=== PATIENT | female | born 1955 | race Caucasian/White ===

== ENCOUNTER 2020-06-24 06:14 | Observation (INO) ==
--- NOTE | 2020-06-05 07:48 | ANES ---
Anesthesia Pre Procedure Eval HOME MEDICATIONS atorvastatin 10 mg tablet 10 mg PO DAILY tab 01/02/20 [Last Taken Unknown] ibuprofen 200 mg capsule 200 mg PO TID-QID PRN 01/02/20 [Last Taken Unknown] levothyroxine 150 mcg tablet 150 mcg PO DAILY tab 01/02/20 [Last Taken Unknown] losartan 50 mg tablet 50 mg PO DAILY tab 01/02/20 [Last Taken Unknown] magnesium glycinate 100 mg tablet 100 mg PO DAILY 01/02/20 [Last Taken Unknown] sertraline 100 mg tablet 100 mg PO DAILY 01/02/20 [Last Taken Unknown] cholecalciferol (vitamin D3) 25 mcg (1,000 unit) capsule 1,000 unit PO DAILY 04/19/20 [Last Taken Unknown] acetaminophen 325 mg tablet 325 mg PO Q6H PRN 05/21/20 [Last Taken Unknown] cyclobenzaprine 10 mg tablet 10 mg PO TID PRN 05/21/20 [Last Taken Unknown] Allergies/Adverse Reactions: Allergies Allergy/AdvReac Type Severity Reaction Status Date / Time lisinopril AdvReac Mild Cough Verified 05/21/20 09:19 - Planned Procedure Planned Procedure: Right Arthroplasty Total Knee Medication List Reviewed:: Yes Allergies Verified: Yes Medical History (Last Reviewed 05/21/20 @ 09:20 by Belkys Griffith RN) Depression High cholesterol Hypertension Hypothyroidism Torn meniscus Onset Date: ~05/13/14 Surgical History (Last Reviewed 05/21/20 @ 09:20 by Belkys Griffith RN) History of arthroscopy of both knees History of cholecystectomy History of hysterectomy History of tonsillectomy and adenoidectomy Family History (Last Reviewed 05/21/20 @ 09:20 by Belkys Griffith RN) Sister Cancer Ovarian age 66 Brother Cancer Prostate CA age 67 Brother Cancer Bladder age 80 Father TIA (transient ischemic attack) Mother No problems noted. - Family Anesthesia History Family History:: no untoward family reactions to anesthesia, no familial bleeding tendencies, no family history of clotting disorders, no family history of premature - Respiratory Smoking Status: Former smoker Discussed smoking cessation including day of surgery: No Sleep Apnea currently treated: No Sleep Apnea by current assessment: No Discussed Risks/Treatment of MONA: No - Cardiovascular Tolerate Activity: Good Heart Sounds: S1 & S2, Regular - Anesthesia Assessment and Plan ASA Class: PS, II Anesthesia Type Plan: Block - Right ultrasound guided adductor canal nerve block for postop analgesia, Spinal
[~2020-06-24 06:14] MED LIST: MORPHINE SULFATE 15 MG TABLET.SA PO PRN; ROPIVACAINE/CLONIDIN/KETOROLAC 50 ML SYRINGE IJ PRN; TRANEXAMIC ACID 1,000 MG in NORMAL SALINE 100 ML IV PRN; ceFAZolin SODIUM 1 GM VIAL IV PRN
[2020-06-24] MEDS ORDERED: ROPIVACAINE/CLONIDIN/KETOROLAC 50 ML SYRINGE IJ ONE (06:36)
[2020-06-24] MEDS ORDERED: ceFAZolin SODIUM 1 GM VIAL ONE (06:36)
[2020-06-24] MEDS: RINGER'S SOLUTION,LACTATED 1,000 ML IV PRN ×3 (06:48→09:40)
[2020-06-24] MEDS ORDERED: ISOPROPYL ALCOHOL 480 APPL BTL MC ONE (06:54)
[2020-06-24] MEDS ORDERED: BUPIVACAINE HCL/EPINEPHRINE 50 ML VIAL IJ ONE (07:00)
[2020-06-24] MEDS ORDERED: PROPOFOL VIAL IV ONE (07:00)
[2020-06-24] MEDS ORDERED: LIDOCAINE HCL 20 ML VIAL ONE (07:00)
[2020-06-24] MEDS ORDERED: BUPIVACAINE HCL/PF 10 ML VIAL ONE (07:00)
[2020-06-24] MEDS ORDERED: MIDAZOLAM HCL/PF 5 MG/ML VIAL ONE (07:00)
[2020-06-24] MEDS ORDERED: ONDANSETRON HCL/PF 2 MG/ML VIAL ONE (07:44)
[2020-06-24] MEDS ORDERED: DEXAMETHASONE SODIUM PHOSPHATE 10 MG/ML VIAL ONE (07:44)
[2020-06-24] MEDS ORDERED: diphenhydrAMINE HCL 50 MG/ML VIAL IV PRN (10:02)
[2020-06-24] MEDS ORDERED: ZOLPIDEM TARTRATE 5 MG TABLET PO PRN (10:02)
[2020-06-24] MEDS ORDERED: MAGNESIUM HYDROXIDE 30 ML UDC PO PRN (10:02)
[2020-06-24] MEDS ORDERED: MAG HYDROX/ALUMINUM HYD/SIMETH 30 ML UDC PO PRN (10:02)
[2020-06-24] MEDS ORDERED: DEXTROSE 5%-LACTATED RINGERS 1,000 ML IV PRN (10:02)
[2020-06-24] MEDS ORDERED: ONDANSETRON HCL/PF 2 MG/ML VIAL IV PRN (10:02)
[2020-06-24] MEDS ORDERED: MORPHINE SULFATE 2 MG/ML DISP.SYRIN IV PRN (10:02)
[2020-06-24] MEDS ORDERED: oxyCODONE HCL/ACETAMINOPHEN 1 TAB TABLET PO PRN (10:02)
--- NOTE | 2020-06-24 10:02 | OR ---
Operative Report - Dictated Report Narrative: Date: 06/24/2020 Preoperative diagnosis: Right knee degenerative joint disease. Postoperative diagnosis: Right knee degenerative joint disease. Procedure: Right total knee arthroplasty. Surgeon: Sean Rosen M.D. Customer Service Supervisor: Agus Maier PA-C (provided and essential set of skilled, educated hands that assisted with transfer, positioning, prepping, draping, manipulation, retraction, placement of jigs, injection, insertion of implants, irrigation, closure wounds, and dressings all of which could not be performed by the available surgical crew) Anesthesia: Spinal with regional block and local periarticular joint injection. Complications: None Specimens: Bone. Estimated blood loss: Minimal. Tourniquet time: 80 minutes at 325 millimeters of mercury. Retained implants: Depuy Attune size 6 narrow right lugged cemented posterior stabilized femoral component. Size 5 fixed-bearing cemented tibial platform. 6 by 5 millimeter posterior stabilized cross-linked tibial insert. 38 millimeter medialized patella button. Indications: Mrs. Marcano is a 64-year-old female who has had longstanding right knee pain and arthrosis. This patient was followed in my clinic for period of time with significant complaints of right knee pain consistent with arthritic changes. She had failed conservative measures including, but not limited to, activity modification, passage of time, medications, and other conservative measures. Patient wished to proceed with surgical treatment. The risks, benefits, and alternatives were discussed in clinic. The risks of , blood clots, bleeding, infection, nerve/tendon blood vessel/ injury, malposition of components, intraoperative fracture, postoperative limited range of motion, persistent pain, failure of components, and need for additional procedures. Patient wished to proceed consent was obtained after answering all questions. Procedure: After marking the correct extremity on the floor, the patient was taken to the operating room. A timeout was performed. IV antibiotics consisting of Ancef were administered prior to the procedure. A regional followed by spinal anesthetic was induced by anesthesia, per my request, on the operative table with all bony prominences well-padded. Hayden catheter was placed, and a bump was placed under the operative side buttock. SCDs and KARMEN hose were utilized on the nonoperative leg. A well-padded tourniquet was applied to the operative thigh. The operative leg was then pre-scrubbed with alcohol, prepped, and draped in a standard sterile fashion. After exsanguinating the extremity with an Esmarch bandage, the tourniquet was inflated. After marking out the anterior knee for standard incision centered over the patella, the skin was incised and dissected down to the joint retinaculum. The joint retinaculum was marked out as well as the horizontal axis of the patella, and a standard medial parapatellar arthrotomy was then made. The most proximal aspect of the quadriceps tendon and the patella tendon insertion were protected from release. A partial synovectomy was performed as well as a resection of the infrapatellar fat pad. The distal femoral fat pad proximal to the trochlea was also resected using cautery. The soft tissues were elevated off the medial aspect of the proximal tibia using a Ko elevator ensuring that we did not transect the medial collateral ligament. Upon initial evaluation range of motion was approximately 0 degrees to 130 degrees of flexion. There were signs of advanced arthrosis in the medial, lateral, and patellofemoral joint spaces. There were large marginal osteophytes which were removed with a rongeur. The knee was hyperflexed and the patella was tucked laterally. Protecting the surrounding soft tissues with Homans, an entry drill was placed down the femoral canal using Whitesides line for guidance into the entry point. The intramedullary femoral alignment tiffanie was utilized in order to cut the distal femur in 5 degrees of valgus resecting 10 millimeters of bone. Next the distal femur was sized to a size 6. A posterior referencing guide was utilized to place the distal femoral cutting block in 3 degrees of external rotation. This was pinned into place. The rotation was confirmed both visually and based on anatomic landmarks. The 4 in 1 cutting jig of the appropriate size was utilized in order to make all bony cuts. The milton wing was used to ensure no notching. Retractors were utilized in order to protect surrounding soft tissues. This cut did not result in any excessive notching. We then cut the box centered over the distal femur. This allowed for resection of the anterior and posterior cruciate ligaments. I then turned my attention to the preparation of the tibia. Using an extra medullary tibial alignment tiffanie, 3 millimeters of bone was resected off the medial articular surface. This was made perpendicular to the mechanical axis of the joint with the alignment tiffanie centered over the ankle mortise. The alignment tiffanie was checked and was noted to be parallel to the mechanical axis, centered over the medial one third of the tibial tubercle, paralleling the anterior surface of the tibia. We then turned our attention to the remaining meniscus and soft tissues. These were removed while protecting the surrounding ligaments and soft tissues. The marginal osteophytes off the anterior, posterior, medial, lateral aspects of the femur and tibia were removed. The tibia was sized out to a size 5. Next the tibia was drilled and punched in an externally rotated position. Next the trial femur and a series of tibial inserts were utilized in order to allow for full extension and maximal flexion. It was found that a 5 millimeter insert gave the best range of motion and stability at multiple flexion points as well as at full extension there was less than 2 mm of gapping both medially and laterally. There is minimal anterior translation with the knee at 90 degrees of flexion and no signs of being able to dislocate the knee. The patella was then prepared. The initial thickness was 23 millimeters. This was reamed down to 13 millimeters parallel to the anterior surface of the patella. It was sized out to a size 38 medialized patella button. This was then drilled and trialed. Without any medial restraint the patella tracked appropriately and did not sublux or dislocate. At this point, it was felt these were the appropriate sized implants, and all trials were removed. The standard periarticular joint injection consisting of ropivacaine, Toradol, and epinephrine were injected into the periarticular joint tissues. The bony surfaces were thoroughly irrigated with a pulsatile-suction saline irrigation device. A bone plug from the prior resected anterior chamfer cut was placed into the drill hole at the distal femur. The bony surfaces were then dried in preparation for placement of the implants. The cement was vacuum mixed per the stock parts fabricator's instructions. The cement was placed on the dry bony surfaces and posterior aspect of the implants. The implants were impacted into place, removing all extruded cement. At this point anesthesia administered tranexamic acid per protocol intravenously. The knee was placed in extension with axial loading with the trial insert while the cement cured. Once the cement cured, all remaining extruded cement was removed. The knee was placed through a range of motion with the trial insert to ensure appropriate range of motion and stability. Final range of motion was approximately 0 to 130 degrees. The knee was again thoroughly irrigated with pulsatile saline lavage. The final polyethylene insert was then impacted into place ensuring no retained soft tissues. The remaining periarticular joint injection was injected. A medium Hemovac drain was placed exiting superior laterally. The knee was then placed over a triangle and the arthrotomy was closed with interrupted #1 Vicryl after thoroughly irrigating the joint. The deep and subcutaneous tissues were closed with interrupted 0 and 3-0 Vicryl respectively. Skin was closed with a running subcutaneous 3-0 Monocryl, 3-0 nylon interrupted and Prineo Dermabond dressing. 4 x 4's, Sof-Rol, and a full leg Alexander wrap were applied. All sponge, needle, blade, and instrument counts were correct prior to closing the wounds. Postoperative condition: The patient was awoken and transferred to the postanesthesia care unit in stable condition. Plan is to be admitted to the inpatient medical/surgical floor postoperatively for 24 hours of IV antibiotics, physical therapy, occupational therapy, and medical comanagement. Patient will be weightbearing as tolerated with range of motion as tolerated. DVT prophylaxis will be with SCDs, KARMEN hose, and pharmacological anticoagulation. Anticipated hospital stay is approximately 1-3 days.
--- NOTE | 2020-06-24 10:23 | ANES ---
Post Anesthesia Discharge - Transfer of Care Transfer of Care handoff given to nurse: Yes - Discharge from PACU Discharge from PACU when meets criteria: Yes
--- NOTE | 2020-06-24 10:26 | ANES ---
Anesthesia Procedure Note Procedure Note: ANESTHESIA PROCEDURE NOTE Date of procedure: 06/24/2020. Time of procedure: 08 35. Performed by: Dereje Dias CRNA Pharmacy Clinical Specialist: Shruti Martinez RN . Preprocedure diagnosis: Right knee DJD. Post procedure diagnosis: Same. Procedure: Ultrasound-guided right adductor canal Indications: Postoperative analgesia. Findings: Patient is brought to operating room #4, sedated, and given a spinal anesthetic. Patient was then placed in a supine position. Patient's right inner thigh was prepped with ChloraPrep. Ultrasound utilized to identify the saphenous nerve in the right adductor canal. A 20-gauge 4 inch regional block needle was advanced under ultrasound guidance until tip of needle was placed just proximally to saphenous nerve. 30 mL of 0.25% Marcaine with epinephrine 1 200,000 was injected with adequate spread of local anesthesia noted around the nerve. Regional block needle was removed intact. EBL: Minimal. Fluids: N/A. Specimen: N/A. Post procedure condition: The patient tolerated the procedure well. No complications were noted. Thank you for this consultation Dereje Dias CRNA
[2020-06-24 11:29] LABS: Troponin I Less than 0.017 ng/mL (0.00-0.10)
[2020-06-24] MEDS: ceFAZolin SODIUM 1 GM in DEXTROSE 5 % IN WATER 100 ML IV SCH ×6 (11:36→23:05)
[2020-06-24] MEDS: KETOROLAC TROMETHAMINE 15 MG/ML VIAL IV SCH ×3 (11:36→23:05)
--- NOTE | 2020-06-24 13:27 | ANES ---
Post Anesthesia Assessment - Vital Signs Vitals: Last Vital Signs Temp 35.9 C L 06/24/20 11:45 Pulse 71 06/24/20 11:45 Resp 18 06/24/20 11:45 BP 124/73 06/24/20 11:45 Pulse Ox 100 06/24/20 11:45 Airway Patency: Normal - Mental Status Level Of Consciousness: Awake - Pain Level Pain Score: 4 - N/V Assessment Nausea/Vomiting Presence: None Dehydration:: No - Additional Notes Comments:: Having chest and back pain in PACU. 12 lead EKG and cardiac panel ordered. Dr. Weber notified and agreed to see pt. Dr Rosen notified
--- NOTE | 2020-06-24 13:44 | CONS ---
[facility] - General Date of Service: 06/24/20 Narrative: 64-year-old female with a past medical history of hypertension, hyperlipidemia, hypothyroidism, depression presents for a an elective right total knee arthroplasty. Status post an uncomplicated procedure she complained of left-sided chest pain radiating to her back. She stated the pain was a 4 out of 10. At the time of my exam she states the pain has improved significantly and she describes her symptoms as a discomfort rather than a pain rated 1 out of 10. Pain is no longer radiating to her back. - History of Present Illness Allergies/Adverse Reactions: Allergies lisinopril Adverse Reaction (Mild, Verified 06/24/20 11:42) Cough Home Medications: Home Medications Medication Instructions Recorded Last Taken atorvastatin 10 mg tablet 10 mg PO DAILY tab 01/02/20 Unknown ibuprofen 200 mg capsule 200 mg PO TID-QID PRN 01/02/20 Unknown levothyroxine 150 mcg tablet 150 mcg PO DAILY tab 01/02/20 Unknown losartan 50 mg tablet 50 mg PO DAILY tab 01/02/20 06/24/20 05:30 magnesium glycinate 100 mg tablet 200 mg PO DAILY 01/02/20 Unknown sertraline 100 mg tablet 100 mg PO DAILY 01/02/20 Unknown cholecalciferol (vitamin D3) 25 1,000 unit PO DAILY 04/19/20 Unknown mcg (1,000 unit) capsule acetaminophen 325 mg tablet 325 mg PO Q6H PRN 05/21/20 Unknown cyclobenzaprine 10 mg tablet 10 mg PO TID PRN 05/21/20 Unknown Ubidecarenone [Coq10] 100 mg PO DAILY 06/05/20 Unknown Procedures Other endoscopy of small intestine (02/01/08) [Endoscopic] polypectomy of rectum (02/01/08) Medications - Medications Current Medications: Current Medications Cefazolin Sodium (Cefazolin Sodium 1 Gm Vial) 2 gm IV PRN PRN; Protocol PRN Reason: PERIOPERATIVE ANTIBIOTICS Stop: 06/24/20 23:00 Last Admin: 06/24/20 08:40 Dose: 2 gm Documented by: Tranexamic Acid 1,000 mg/ (Sodium Chloride) 110 mls @ 600 mls/hr IV PRN PRN PRN Reason: blood loss reduction Stop: 06/24/20 23:00 Last Infusion: 06/24/20 12:23 Dose: Infused Documented by: Lactated Ringer's (Lactated Ringers) 1,000 mls @ 175 mls/hr IV .Q5H43M PRN PRN Reason: HYDRATION Stop: 06/24/20 23:59 Last Infusion: 06/24/20 12:23 Dose: Infused Documented by: Cefazolin Sodium 1 gm/ (Dextrose/Water) 100 mls @ 200 mls/hr IV Q6H SEVERO; Protocol Stop: 06/25/20 00:31 Last Infusion: 06/24/20 12:23 Dose: Infused Documented by: Dextrose/Lactated Ringer's (Dextrose 5%-Lr) 1,000 mls @ 125 mls/hr IV .Q8H PRN PRN Reason: HYDRATION Stop: 07/24/20 10:03 Last Admin: 06/24/20 11:20 Dose: 125 mls/hr Documented by: Ketorolac Tromethamine (Ketorolac Tromethamine 15 Mg/Ml Vial) 15 mg IV Q6H SEVERO Stop: 06/26/20 05:16 Last Admin: 06/24/20 11:36 Dose: 15 mg Documented by: Morphine Sulfate (Morphine Sulfate 15 Mg Tablet.Sa) 15 mg PO PREOP PRN PRN Reason: preop pain Stop: 06/24/20 23:59 Last Admin: 06/24/20 06:47 Dose: 15 mg Documented by: Review of Systems - Review of Systems Generalized/Overall Review: Absent: Chills, Fever Respiratory: Absent: Shortness of Breath Cardiac: Present: Chest Pain Abdominal: Absent: Abdominal Pain Misc: All systems neg except as marked Physical Examination - Exam Vital Signs: Vital Signs - Last Taken Temp 35.9 C L 06/24/20 11:45 Pulse 71 06/24/20 11:45 Resp 18 06/24/20 11:45 BP 124/73 06/24/20 11:45 Pulse Ox 100 06/24/20 11:45 O2 Oxygen Delivery Method Nasal Cannula Constitutional: Present: Alert, Cooperative, Well developed, Well nourished, No distress, Elderly ENT Exam: Present: hearing grossly normal Eye Exam: bilateral eye: normal inspection Neck: Present: non-tender, supple. Absent: lymphadenopathy (R), lymphadenopathy (L) Respiratory: Present: lungs clear, no respiratory distress, no accessory muscle use, No wheezing. Absent: crackles, rhonchi Cardiovascular/Chest: Present: normal peripheral pulses, regular rate, rhythm, no edema, no murmur Peripheral Pulses: dorsalis-pedis (R): 2+, dorsalis-pedis (L): 2+ Abdomen: Present: Normal bowel sounds, soft Extremity: Present: other - Dressing in place on right lower extremity Skin Exam: Present: normal color, warm/dry Neurologic: Present: alert, normal mood/affect Appearance: Present: appropriate appearance, appropriate insight Thoughts: Present: normal mood /affect - Results and Findings: Narrative: 64-year-old female with a past medical history of hypertension, hyperlipidemia, hypothyroidism, depression presents for a an elective right total knee arthroplasty. Status post an uncomplicated procedure she complained of left- sided chest pain radiating to her back. She stated the pain was a 4 out of 10. At the time of my exam she states the pain has improved significantly and she describes her symptoms as a discomfort rather than a pain rated 1 out of 10. Pain is no longer radiating to her back. EKG appears stable and troponin was less than 0.017. Her discomfort may have been secondary to anesthesia. Continue to monitor. No further intervention needed. Plan #1 Her vitals are stable and her pain has resolved. Continue to monitor. Cardiac work-up is unremarkable. No further intervention needed. I will sign off. Reconsult as needed. - Assessments/Findings (1) Chest pain Problem: Acute Qualifiers: Chest pain type: other chest pain Qualified Code(s): R07.89 - Other chest pain (2) Hypertension Problem: Acute (3) Hyperlipidemia Problem: Acute (4) Hypothyroidism Problem: Acute (5) Status post right knee replacement Problem: Acute
[2020-06-24 13:50] LABS: CK Total * 173 U/L (0-259); CKMB 2.3 ng/mL (0.0-9.0)
[2020-06-24] MEDS: oxyCODONE HCL/ACETAMINOPHEN 1 TAB TABLET PO PRN ×2 (15:40→19:48)
[2020-06-24] MEDS: MORPHINE SULFATE 15 MG TABLET.SA PO SCH (20:56)
[2020-06-24] MEDS ORDERED: SENNOSIDES/DOCUSATE SODIUM 1 TAB TABLET PO SCH (21:00)
[2020-06-24] MEDS: ACETAMINOPHEN 500 MG TABLET PO PRN (23:32)
[2020-06-25] MEDS: oxyCODONE HCL/ACETAMINOPHEN 1 TAB TABLET PO PRN ×3 (03:22→12:32)
[2020-06-25] MEDS: KETOROLAC TROMETHAMINE 15 MG/ML VIAL IV SCH ×2 (04:25→11:20)
[2020-06-25] MEDS: ACETAMINOPHEN 500 MG TABLET PO PRN (05:34)
[2020-06-25 06:15] LABS: Hematocrit 34.8 % (37.0-47.0); Hemoglobin 11.1 gm/dL (12.5-16.0); Mean Cell Volume 88.5 fl (78-100); Mean Corpuscular Hemoglobin 28.2 pg (27-31); Mean Corpuscular Hgb Conc 31.9 g/dl (32-36); Mean Platelet Volume 10.5 fl (8-12.5); Platelet Count 181 K/mm3 (150-450); Red Blood Count 3.93 M/mm3 (4.2-5.4); Red Cell Distribution Width 13.9 % (11.5-14.0); White Blood Count 10.4 K/mm3 (4.0-10.5)
[2020-06-25 06:19] LABS: BUN/Creatinine Ratio 12.8 (9.0-21.6); Calcium * 8.6 mg/dL (7.9-10.9); Carbon Dioxide 28.2 mmol/L (24-32.6); Estimated Creat Clear 56.7; Potassium 4.2 mmol/L (3.4-4.6)
[2020-06-25] MEDS ORDERED: LEVOTHYROXINE SODIUM 150 MCG TABLET PO SCH (07:00)
[2020-06-25] MEDS: MORPHINE SULFATE 15 MG TABLET.SA PO SCH (08:24)
[2020-06-25] MEDS ORDERED: LOSARTAN POTASSIUM 50 MG TABLET PO SCH (09:00)
[2020-06-25] MEDS ORDERED: SERTRALINE HCL 100 MG TABLET PO SCH (09:00)
[2020-06-25] MEDS ORDERED: ROSUVASTATIN CALCIUM 5 MG TABLET PO SCH (09:00)
[2020-06-25] MEDS ORDERED: UBIDECARENONE 50 MG PO SCH (09:00)
[2020-06-25] MEDS ORDERED: CHOLECALCIFEROL 1,000 UNIT CAPSULE PO SCH (09:00)
[2020-06-25] MEDS ORDERED: ENOXAPARIN SODIUM 40 MG/0.4 ML SYRG SC SCH (09:02)
--- NOTE | 2020-06-25 11:52 | DS ---
(1) Chest pain Problem: Resolved Qualifiers: Chest pain type: other chest pain Qualified Code(s): R07.89 - Other chest pain (2) Hyperlipidemia Problem: Chronic (3) Hypertension Problem: Chronic (4) Hypothyroidism Problem: Chronic (5) Status post right knee replacement Problem: Acute Date of Discharge:: 06/25/20 Hospital Course: Mrs. Marcano was admitted to the floor after undergoing right total knee arthroplasty. Tolerated this well. She did note some chest pain in the recovery room as well is on the way to the floor which was worked up by internal medicine and found to be negative for cardiac sources and resolved with appropriate treatment. She was admitted to the floor postoperatively for 24 hours of IV antibiotics, pain control, medical comanagement, and occupational and physical therapy. OT and PT were consulted to assist with activities of daily living and ambulation. Was made weightbearing as tolerated with range of motion as tolerated. Pain was initially controlled with IV regimen. This was transitioned to oral once tolerating a by mouth intake. Was resumed on home diet and medications. A Hayden catheter was inserted in the operating room which was discontinued by postoperative day 1. A drain was placed intraoperatively into the knee which was discontinued on postoperative day 1. Lovenox, SCDs, and KAREMN hose were utilized for DVT prophylaxis. Vital signs remained stable to the hospital course. Labs were obtained which showed a final hemoglobin of 11.1 grams. BMP was reviewed and was stable. Physical examination throughout the hospital course showed an extremity that had sensation that was intact to light touch, palpable pulses, a benign wound, motor intact to the toes, ankle, and knee. Knee range of motion was approximately 5 degrees to 60 degrees. Once an oral pain regimen was tolerated and physical therapy goals were met, it was felt that they were stable for discharge to home. Instructions: Continue with weightbearing as tolerated and range of motion as tolerated. It is okay to shower and get the wound wet as long as there is no drainage from the wound. Do not bathe or soak the wound. If there is any drainage from the wound keep the wound clean and dry and cover with dry gauze and tape. Change every 2- 3 days as needed if there is any drainage. Cover wound while showering if there is any drainage. Continue with physical therapy. Resume home diet. Report any fever over 101.5 Fahrenheit, uncontrolled pain, increased drainage, foul odor of drainage, new or increased calf pain or shortness of breath, or any other significant complaints. A 325mg daily aspirin will be started after finishing anticoagulation if not allergic. Continue with KARMEN hose on the operative extremity until instructed otherwise. No driving until instructed otherwise. Follow up in approximately 2-3 weeks. Procedures Performed: see notes below List Procedures: Right total knee arthroplasty Results and Findings: Lab Pending Results 06/24/20 10:51: Creatine Kinase 173, CK-MB (CK-2) 2.3, CK-MB (CK-2) Rel Index 1.3, Troponin I Less than 0.017 06/25/20 06:09: WBC 10.4, RBC 3.93 L, Hgb 11.1 L, Hct 34.8 L, MCV 88.5, MCH 28.2, MCHC 31.9 L, RDW 13.9, Plt Count 181, MPV 10.5 06/25/20 06:09: Sodium 138, Plasma Sodium 138, Potassium 4.2, Chloride 106, Carbon Dioxide 28.2, Anion Gap 8.0, BUN 11, Creatinine 0.86, Est GFR (Non-Af Amer) 70, BUN/Creatinine Ratio 12.8, Random Glucose 115 H, Calcium 8.6 Disposition: Home self-care Condition: Good Discharge Activity: Activity as tolerated, Weight bearing Discharge Diet: General/regular food Referrals: BARI GARIBAY [Primary Care Provider] - Additional Patient Instructions (free text): Physical Therapy at [facility] outpatient rehab on WednesdayJune 26 at 12:30pm. Follow up [facility] Orthopedic office appointment on WednesdayJuly 16 at 9:00am. Prescriptions (Any new or edited meds): Enoxaparin Sodium [Lovenox] 40 mg SC Q24H #7 disp.syrin Transmission Status: Received by [place], [place] Morphine Sulfate [Ms Contin] 15 mg PO Q12H #10 tablet.sa Transmission Status: Received by [place], [place] oxyCODONE HCL/ACETAMINOPHEN [Percocet 5 MG/325 MG] 1 - 2 tab PO Q4H PRN #50 tab PRN Reason: Moderate Pain (Pain Scale 4-6) Transmission Status: Received by [place], [place] Sennosides/Docusate Sodium [Senokot-S] 2 tab PO HS #60 tab Transmission Status: Received by [facility], [place], [place] Complete Home Medications List: Complete Home Medication List: atorvastatin 10 mg tablet 10 mg PO DAILY tab 01/02/20 ibuprofen 200 mg capsule 200 mg PO TID-QID PRN 01/02/20 levothyroxine 150 mcg tablet 150 mcg PO DAILY tab 01/02/20 losartan 50 mg tablet 50 mg PO DAILY tab 01/02/20 magnesium glycinate 100 mg tablet 200 mg PO DAILY 01/02/20 sertraline 100 mg tablet 100 mg PO DAILY 01/02/20 cholecalciferol (vitamin D3) 25 mcg (1,000 unit) capsule 1,000 unit PO DAILY 04/19/20 cyclobenzaprine 10 mg tablet 10 mg PO TID PRN 05/21/20 Ubidecarenone [Coq10] 100 mg PO DAILY 06/05/20 Enoxaparin Sodium [Lovenox] 40 mg SC Q24H #7 disp.syrin 06/25/20 Morphine Sulfate [Ms Contin] 15 mg PO Q12H #10 tablet.sa 06/25/20 Sennosides/Docusate Sodium [Senokot-S] 2 tab PO HS #60 tab 06/25/20 oxyCODONE HCL/ACETAMINOPHEN [Percocet 5 MG/325 MG] 1 - 2 tab PO Q4H PRN #50 tab 06/25/20 Amb Orders for Discharge: PT Evaluation and Treatment* Facility: [facility], Location: Rehabilitation Services Forms: Patient Portal Registration
[2020-06-25 13:41] VITALS: BP 107/54
== END 2020-06-25 12:46 | disposition home or self-care (01) ==
LOC: SUR 06:14 → MS 06:14
PROVIDERS: ADMIT Orthopaedic Surgery; ATTEND Orthopaedic Surgery

== ENCOUNTER 2020-06-26 12:51 | Observation (INO) ==
[2020-06-26] MEDS ORDERED: NORMAL SALINE 1,000 ML IV PRN (13:16)
[2020-06-26] MEDS ORDERED: ONDANSETRON HCL/PF 2 MG/ML VIAL IV ONE ×2 (13:17→15:22)
[2020-06-26] MEDS ORDERED: MORPHINE SULFATE 4 MG/ML SYRG IV ONE (13:20)
--- NOTE | 2020-06-26 13:30 | ERNOTE ---
Medical Problem HPI - Narrative Date of Service: 06/26/20 - General Chief Complaint: Nausea/Vomiting Time Seen by Provider: 06/26/20 13:06 Source: patient Exam Limitations: no limitations - Immun/Allergies/Home Medications Immunizations: IMMUNIZATION HX Immunizations Up to Date Yes Allergies/Adverse Reactions: Allergies lisinopril Adverse Reaction (Mild, Verified 06/24/20 11:42) Cough Home Medications: HOME MEDICATIONS atorvastatin 10 mg tablet 10 mg PO DAILY tab 01/02/20 [Last Taken Unknown] ibuprofen 200 mg capsule 200 mg PO TID-QID PRN 01/02/20 [Last Taken Unknown] levothyroxine 150 mcg tablet 150 mcg PO DAILY tab 01/02/20 [Last Taken 06/25] losartan 50 mg tablet 50 mg PO DAILY tab 01/02/20 [Last Taken 06/25/20] magnesium glycinate 100 mg tablet 200 mg PO DAILY 01/02/20 [Last Taken Unknown] sertraline 100 mg tablet 100 mg PO DAILY 01/02/20 [Last Taken Unknown] cholecalciferol (vitamin D3) 25 mcg (1,000 unit) capsule 1,000 unit PO DAILY 04/19/20 [Last Taken Unknown] cyclobenzaprine 10 mg tablet 10 mg PO HS PRN 05/21/20 [Last Taken Unknown] Ubidecarenone [Coq10] 100 mg PO DAILY 06/05/20 [Last Taken Unknown] Enoxaparin Sodium [Lovenox] 40 mg SC Q24H #7 disp.syrin 06/25/20 [Last Taken 06/26/20 12:30] Morphine Sulfate [Ms Contin] 15 mg PO Q12H #10 tablet.sa 06/25/20 [Last Taken 06/25/20 18:30] Sennosides/Docusate Sodium [Senokot-S] 2 tab PO HS #60 tab 06/25/20 [Last Taken 06/25/20 21:00] oxyCODONE HCL/ACETAMINOPHEN [Percocet 5 MG/325 MG] 1 - 2 tab PO Q4H PRN #50 tab 06/25/20 [Last Taken 06/25/20 23:30] promethazine 25 mg tablet 25 mg PO QID PRN #30 tab 06/26/20 [Last Taken 06/26/20 12:00] - Pain Score Pain Score #1 Pain Score: 10 - History of Present History Narrative: The patient is a 64 year old female who presents via POV from physical therapy for nausea and vomiting which has been present for 2 days. There are associated symptoms of right knee pain and inability to tolerate any oral medications. The patient reports constant 10/10 pain. There are no alleviating factors as she is unable to tolerate her oral pain medication due to nausea. There are aggravating factors of ROM and walking. Previous treatments have included: percocet and morphine, however is unable to keep anything down at this time. The past medical history includes: knee replacement, HTN, high cholesterol and depression. The social history is positive for former smoker. The patient has had no known ill contacts. Review of Systems - Review of Systems Constitutional: Present: no symptoms reported. Absent: fever, chills EYE: Present: no symptoms reported ENT: Present: no symptoms reported. Absent: nasal drainage, sore throat Respiratory: Present: no symptoms reported. Absent: shortness of breath, cough Cardiology: Present: no symptoms reported. Absent: chest pain, palpitations, edema Gastrointestinal/Abdominal: Present: nausea, vomiting, eating less, drinking less Genitourinary: Present: no symptoms reported Musculoskeletal: Present: joint pain - Rt Knee, joint swelling - Rt Knee Medical History (Last Reviewed 06/26/20 @ 13:26 by GINETTE Mix) Depression High cholesterol Hypertension Hypothyroidism Torn meniscus Onset Date: ~05/13/14 bilaterally Surgical History: Surgical History (Last Reviewed 06/26/20 @ 13:27 by GINETTE Mix) History of arthroscopy of both knees History of cholecystectomy History of hysterectomy History of tonsillectomy and adenoidectomy Family History: Family History (Last Reviewed 06/26/20 @ 13:27 by GINETTE Mix) Sister Cancer Ovarian age 66 Brother Cancer Prostate CA age 67 Brother Cancer Bladder age 80 Father CVA (cerebral vascular accident) TIA (transient ischemic attack) Mother History of open heart surgery Arthritis CAD (coronary artery disease) Social History: (Last Reviewed 06/26/20 @ 13:27 by GINETTE Mix) Social History: adopted: No Marital status: household members: significant other current occupation: Retired Highest level of school completed/degree received: Associate degree: academi Tobacco: Smoking Status: Former smoker how long ago did patient quit smoking: at least 25 years ago passive smoking exposure: No Alcohol: alcohol intake: never Substance Use: substance use type: does not use Dietary Habits: caffeine: Yes caffeine comment: 3 Type: coffee Physical Exam - Physical Exam General Appearance: Present: wd/wn, alert, moderate distress Head Exam: Present: normal inspection, no evidence of injury Eye Exam: Normal inspection: bilateral Ears, Nose, Throat: Present: dry mucous membranes Neck: Present: normal inspection Respiratory: Present: no respiratory distress, normal breath sounds, lungs clear Cardiovascular/Chest: Present: no murmur, tachycardia - 125 Gastrointestinal/Abdominal: Present: nondistended, soft, no organomegaly, tenderness - RUQ, abnormal bowel sounds - hypoactive diffuse Extremity Exam: Present: decreased range of motion - Rt Knee, joint swelling - Rt Knee, normal post surgical edema, other - surgical incision with wound edges well approximated, no active drainage, slight erythema which is not appreciated as infection. Absent: calf tenderness, joint redness Neurological Exam: Present: alert, oriented, normal mood/affect, no motor/sensory deficits Skin Exam: Present: normal color, warm/dry, other - Erythema to Rt Knee Incision Progress - Date and Time Seen: Date and Time: 06/26/20 14:13 Patient has tenderness to RUQ, denies history of elevated liver enzymes. Patient denies alcohol intake but has been taking Percocet but has not had dose for at minimum 24 hours. 06/26/20 16:[address] which shows dilatation of common bile duct with elevated liver enzymes. Will discuss plan of care with [facility] hepatology. 06/26/20 17:47 Remain awaiting consult with [facility] and return call from hepatology for discussion of plan of care. 06/26/20 18:27 Discussed results and plan of care with , hepatology and feels that patient should be transferred to [facility] ER for ERCP procedure and additional evaluation. [facility] will contact for ED to ED transfer. Awaiting return call for acceptance. Patient was updated regarding plan of care and verbalized understanding. 06/26/20 18:33 Discussed case with [facility] ER, , and patient will be made priority level 2 for transfer acceptance for ERCP. They will make accepting service hepatobiliary made aware upon patients arrival. 06/26/20 18:38 I have reviewed the recommendations of [facility] with and will admit for observation pending bed availability for transfer to [facility] for advanced procedure, ERCP. 06/26/20 19:20 Patient has received vaccine series for COVID as well as had negative COVID testing prior to admission for procedure. Patient declines symptoms associated with COVID. - Results and Orders Patient's Lab Results:: I have reviewed the patient's lab results. - Vital Signs Patient's Vital Signs:: I have reviewed the patient's vital signs. Vital Signs: Vital Signs 06/26/20 12:51 Temperature 37.2 C Pulse Rate 118 H Respiratory Rate 17 Blood Pressure 153/84 H O2 Sat by Pulse Oximetry 97 - CT/Ultrasound CT/Ultrasound Narrative: IMPRESSION: 1. PREVIOUS CHOLECYSTECTOMY. 2. 10 MM COMMON BILE DUCT WITH BORDERLINE TO MILD INTRAHEPATIC DUCT DILATATION. CLINICAL CORRELATION REQUIRED. 3. PREVIOUS HYSTERECTOMY. 4. 6 MM SCLEROTIC DENSITY IN THE POSTERIOR S1 LEVEL; BENIGN SCLEROTIC DENSITY VERSUS EARLY OSTEOBLASTIC METASTASIS. CORRELATION REQUIRED. Electronically signed by Olu Zuleta M.D.. - Progress/Reassessment Chief Complaint: Nausea/Vomiting Progress:: Improved Departure Clinical Impression: Elevated liver enzymes, Common bile duct dilatation - Departure Disposition: Still a patient Condition: Stable
[2020-06-26 13:32] LABS: Hematocrit 37.8 % (37.0-47.0); Hemoglobin 12.3 gm/dL (12.5-16.0); Mean Cell Volume 86.3 fl (78-100); Mean Corpuscular Hemoglobin 28.1 pg (27-31); Mean Corpuscular Hgb Conc 32.5 g/dl (32-36); Mean Platelet Volume 10.5 fl (8-12.5); Neutrophil # 6.9 K/mm3 (1.3-6.0); Neutrophil % 78.6 % (42-75.0); Platelet Count 218 K/mm3 (150-450); Red Blood Count 4.38 M/mm3 (4.2-5.4); Red Cell Distribution Width 14.2 % (11.5-14.0); White Blood Count 8.7 K/mm3 (4.0-10.5)
[2020-06-26 13:52] LABS: Albumin * 3.8 gm/dl (3.4-5.0); Anion Gap 14.7 mmol/L (6.8-13.8); BUN/Creatinine Ratio 13.2 (9.0-21.6); Bilirubin, Total 0.6 mg/dL (0.0-1.1); CRP 8.7 mg/dL (0.0-0.9); Ca. Corrected For Albumin 8.9 mg/dL (8.4-10.2); Calcium * 9.1 mg/dL (7.9-10.9); Potassium 3.7 mmol/L (3.4-4.6); Total Protein 7.4 gm/dL (6.2-8.2)
[2020-06-26] MEDS ORDERED: DIATRIZOATE MEGLUMINE, SODIUM 30 ML BTL PO ONE (14:09)
[2020-06-26] MEDS ORDERED: MORPHINE SULFATE 2 MG/ML DISP.SYRIN IV ONE (15:21)
[2020-06-26] MEDS ORDERED: HYDROmorphone HCL 1 MG/ML DISP.SYRIN IV ONE ×2 (16:48→18:29)
--- NOTE | 2020-06-26 20:45 | HP ---
Chief Complaint - Chief Complaint Date of Service: 06/26/20 Time of Service: 20:16 Chief Complaint: nausea/vomiting History of Present Illness: Nataliia Marcano is a 64-year-old white female with past medical history significant for hypertension, hypothyroidism, depression, recent right total knee replacement who was admitted on 06/26/2020 for nausea and vomiting. The patient was just recently in our hospital last Wednesday for a total knee repl acement and was discharged yesterday. She said she took her pain medication in the evening and around 2 AM she woke up with nausea and vomiting. She has not been able to put anything in orally for her knee pain and so she was brought to the emergency room. She did say that she was having some chills but no fever. She has had a cholecystectomy many years ago. In the emergency room she was found to have elevated liver function tests. Her AST/ALT was 499/1070 and her alkaline phosphatase was 262. Total bilirubin was 0.6. Her CRP was 8.7, WBC was 8.7, platelet of 218, BUN/creatinine of 9 and 0.68. Her lipase was 88 and her acetaminophen level was less than 0.2. CT scan of her abdomen was done and it showed - IMPRESSION: 1. PREVIOUS CHOLECYSTECTOMY. 2. 10 MM COMMON BILE DUCT WITH BORDERLINE TO MILD INTRAHEPATIC DUCT DILATATION. CLINICAL CORRELATION REQUIRED. 3. PREVIOUS HYSTERECTOMY. 4. 6 MM SCLEROTIC DENSITY IN THE POSTERIOR S1 LEVEL; BENIGN SCLEROTIC DENSITY VERSUS EARLY OSTEOBLASTIC METASTASIS. CORRELATION REQUIRED. The ED called her general surgeon who recommended patient to be transferred to [facility] clinics for possible ERCP. The patient was accepted in [place] by Dr. Butler, hepatology and Dr. Whitley, ED, however, there is no available bed at this point in time and so she was admitted for observation awaiting transfer for this procedure. Patient is currently still with nausea and does complain of right knee pain from her recent surgery. Medical History (Last Reviewed 06/26/20 @ 20:05 by Anyi Alfonso RN) Depression High cholesterol Hypertension Hypothyroidism Torn meniscus Onset Date: ~05/13/14 bilaterally Surgical History: Surgical History (Last Updated 06/26/20 @ 20:06 by Anyi Alfonso RN) History of arthroscopy of both knees History of cholecystectomy History of hysterectomy History of tonsillectomy and adenoidectomy Status post right knee replacement Family History: Family History (Last Reviewed 06/26/20 @ 20:06 by Anyi Alfonso RN) Sister Cancer Ovarian age 66 Brother Cancer Prostate CA age 67 Brother Cancer Bladder age 80 Father TIA (transient ischemic attack) CVA (cerebral vascular accident) Mother CAD (coronary artery disease) Arthritis History of open heart surgery Social History: (Last Reviewed 06/26/20 @ 20:07 by Anyi Alfonso RN) Social History: adopted: No Marital status: household members: significant other current occupation: Retired Highest level of school completed/degree received: Associate degree: [employer] Tobacco: Smoking Status: Former smoker how long ago did patient quit smoking: at least 25 years ago passive smoking exposure: No Alcohol: alcohol intake: never Substance Use: substance use type: does not use Dietary Habits: caffeine: Yes caffeine comment: 3 Type: coffee Review Of Systems (GEN) - Review of Systems Generalized/Overall Review: Present: Chills. Absent: Fever EENTM: Absent: Blurred Vision, Nose Congestion Respiratory: Absent: Cough, Shortness of Breath, Orthopnea, Wheezing Cardiac: Absent: Chest Pain, Edema, Palpitations Abdominal: Present: Nausea, Vomiting. Absent: Hematemesis, Abdominal Pain, Diarrhea Genitourinary: Absent: Urgency, Frequency Musculoskeletal: Present: Joint Pain. Absent: Back Pain Neurological: Absent: Anxiety, Depressed Skin: Absent: Lesions, Rash, Change in hair/nails Endocrine: Absent: Intolerance to Cold, Intolerance to Heat Misc: All systems neg except as marked Immunizations: IMMUNIZATION HX Immunizations Up to Date Yes Allergies/Adverse Reactions: Allergies Allergy/AdvReac Type Severity Reaction Status Date / Time lisinopril AdvReac Mild Cough Verified 06/24/20 11:42 Home Medications: HOME MEDICATIONS atorvastatin 10 mg tablet 10 mg PO DAILY tab 01/02/20 [Last Taken Unknown] ibuprofen 200 mg capsule 200 mg PO TID-QID PRN 01/02/20 [Last Taken Unknown] levothyroxine 150 mcg tablet 150 mcg PO DAILY tab 01/02/20 [Last Taken 06/25/20] losartan 50 mg tablet 50 mg PO DAILY tab 01/02/20 [Last Taken 06/25/20] magnesium glycinate 100 mg tablet 200 mg PO DAILY 01/02/20 [Last Taken Unknown] sertraline 100 mg tablet 100 mg PO DAILY 01/02/20 [Last Taken Unknown] cholecalciferol (vitamin D3) 25 mcg (1,000 unit) capsule 1,000 unit PO DAILY 04/19/20 [Last Taken Unknown] cyclobenzaprine 10 mg tablet 10 mg PO HS PRN 05/21/20 [Last Taken Unknown] Ubidecarenone [Coq10] 100 mg PO DAILY 06/05/20 [Last Taken Unknown] Enoxaparin Sodium [Lovenox] 40 mg SC Q24H #7 disp.syrin 06/25/20 [Last Taken 06/26/20 12:30] Morphine Sulfate [Ms Contin] 15 mg PO Q12H #10 tablet.sa 06/25/20 [Last Taken 06/25/20 18:30] Sennosides/Docusate Sodium [Senokot-S] 2 tab PO HS #60 tab 06/25/20 [Last Taken 06/25/20 21:00] oxyCODONE HCL/ACETAMINOPHEN [Percocet 5 MG/325 MG] 1 - 2 tab PO Q4H PRN #50 tab 06/25/20 [Last Taken 06/25/20 23:30] promethazine 25 mg tablet 25 mg PO QID PRN #30 tab 06/26/20 [Last Taken 06/26/20 12:00] Exam - Exam Vital Signs: Vital Signs - Last Taken Temp 37.9 C 06/26/20 19:51 Pulse 124 H 06/26/20 19:51 Resp 20 06/26/20 19:51 BP 155/85 H 06/26/20 19:51 Pulse Ox 96 06/26/20 19:51 Constitutional: Present: Alert, Oriented x3, Cooperative Eye Exam: bilateral eye: normal inspection, PERRL, EOMI Neck: Present: supple. Absent: lymphadenopathy (R), lymphadenopathy (L) Respiratory: Present: normal breath sounds, No rales, No wheezing Cardiovascular/Chest: Present: regular rate, rhythm, no JVD, JVD, tachycardia Abdomen: Present: soft - Equivocal, positive Grove sign - Equivocal, hypoactive. Absent: guarding, rigidity Extremity: Present: no calf tenderness, pedal edema Diagnostic Studies: Abnormal Lab Results 06/26/20 06/26/20 06/26/20 Range/Units 13:10 13:29 13:29 Hgb 12.3 L (12.5-16.0) gm/dL RDW 14.2 H (11.5-14.0) % Neutrophils % 78.6 H (42-75.0) % Lymphocytes % 11.2 L (20-51) % Neutrophils # 6.9 H (1.3-6.0) K/mm3 Lymphocytes # 0.98 L (1.5-3.5) k/mm3 Anion Gap 14.7 H (6.8-13.8) mmol/L AST 499 H (0-48) U/L ALT 1070 H (19-67) U/L Alkaline Phosphatase 262 H (50-170) U/L C-Reactive Prot, Quant 8.7 H (0.0-0.9) mg/dL Acetaminophen Less than 0.2 L (10.0-30.0) mcg/mL Laboratory Results WBC 8.7 K/mm3 (4.0-10.5) 06/26/20 13:29 RBC 4.38 M/mm3 (4.2-5.4) 06/26/20 13:29 Hgb 12.3 gm/dL (12.5-16.0) L 06/26/20 13:29 Hct 37.8 % (37.0-47.0) 06/26/20 13:29 MCV 86.3 fl (78-100) 06/26/20 13:29 MCH 28.1 pg (27-31) 06/26/20 13:29 MCHC 32.5 g/dl (32-36) 06/26/20 13:29 RDW 14.2 % (11.5-14.0) H 06/26/20 13:29 Plt Count 218 K/mm3 (150-450) 06/26/20 13:29 MPV 10.5 fl (8-12.5) 06/26/20 13:29 Immature Gran % (Auto) 0.20 % (0.001-0.429) 06/26/20 13:29 Immature Gran # (Auto) 0.02 K/mm3 (0.000-0.0310) 06/26/20 13:29 Neutrophils % 78.6 % (42-75.0) H 06/26/20 13:29 Lymphocytes % 11.2 % (20-51) L 06/26/20 13:29 Monocytes % 8.6 % (0.0-9) 06/26/20 13:29 Eosinophils % 1.1 % (0.0-3.0) 06/26/20 13:29 Basophils % 0.3 % (0.0-1.0) 06/26/20 13:29 Nucleated RBC % 0.0 k/mm3 (0-1) 06/26/20 13:29 Neutrophils # 6.9 K/mm3 (1.3-6.0) H 06/26/20 13:29 Lymphocytes # 0.98 k/mm3 (1.5-3.5) L 06/26/20 13:29 Monocytes # 0.8 k/mm3 (0.0-1.0) 06/26/20 13:29 Eosinophils # 0.1 k/mm3 (0.0-0.7) 06/26/20 13:29 Absolute Basophils 0.0 k/mm3 (0.0-0.1) 06/26/20 13:29 Sodium 141 mmol/L (132-142) 06/26/20 13:29 Plasma Sodium 141 mmol/L (130-142) 06/26/20 13:29 Potassium 3.7 mmol/L (3.4-4.6) 06/26/20 13:29 Chloride 104 mmol/L (97-106) 06/26/20 13:29 Carbon Dioxide 26.0 mmol/L (24-32.6) 06/26/20 13:29 Anion Gap 14.7 mmol/L (6.8-13.8) H 06/26/20 13:29 BUN 9 mg/dL (3-23) 06/26/20 13:29 Creatinine 0.68 mg/dL (0.4-1.4) 06/26/20 13:29 Est GFR (Non-Af Amer) 92 mL/min (60-130) D 06/26/20 13:29 BUN/Creatinine Ratio 13.2 (9.0-21.6) 06/26/20 13:29 Random Glucose 106 mg/dL (70-110) 06/26/20 13:29 Calcium 9.1 mg/dL (7.9-10.9) 06/26/20 13:29 Calcium Adj for Albumin 8.9 mg/dL (8.4-10.2) 06/26/20 13:29 Total Bilirubin 0.6 mg/dL (0.0-1.1) 06/26/20 13:29 AST 499 U/L (0-48) H 06/26/20 13:29 ALT 1070 U/L (19-67) H 06/26/20 13:29 Alkaline Phosphatase 262 U/L (50-170) H 06/26/20 13:29 C-Reactive Prot, Quant 8.7 mg/dL (0.0-0.9) H 06/26/20 13:29 Total Protein 7.4 gm/dL (6.2-8.2) 06/26/20 13:29 Albumin 3.8 gm/dl (3.4-5.0) 06/26/20 13:29 Lipase 88 U/L (73-393) 06/26/20 13:20 Acetaminophen Less than 0.2 mcg/mL (10.0-30.0) L 06/26/20 13:10 Assessment/Plan - Narrative Narrative: Maria was admitted for nausea and vomiting and was found to have elevated liver function tests. A CT scan is showing common bile duct dilatation is awaiting transfer for ERCP once availability of bed opens up. The meantime we will continue patient with her IV antiemetics and IV pain medication as needed. She may take Tylenol as needed for mild pain/fever but not to exceed 2 g a day. We will continue with her Lovenox for DVT prophylaxis. - Assessment/Plan (1) Elevated liver enzymes Problem: Acute (2) Common bile duct dilatation Problem: Acute (3) Status post right knee replacement Problem: Acute (4) Hypertension Problem: Chronic (5) Hyperlipidemia Problem: Chronic (6) Hypothyroidism Problem: Chronic
[2020-06-26] MEDS ORDERED: ACETAMINOPHEN 500 MG TABLET PO PRN (20:48)
--- NOTE | 2020-06-26 20:58 | DS ---
Transfer Discharge Summary - Diagnosis(s)/Problems (1) Elevated liver enzymes Problem: Acute (2) Common bile duct dilatation Problem: Acute (3) Status post right knee replacement Problem: Acute (4) Hypertension Problem: Chronic (5) Hyperlipidemia Problem: Chronic (6) Hypothyroidism Problem: Chronic - Course Description of Stay: Nataliia Marcano is a 64-year-old white female with past medical history significant for hypertension, hypothyroidism, depression, recent right total knee replacement who was admitted on 06/26/2020 for nausea and vomiting. The patient was just recently in our hospital last Wednesday for a total knee replacement and was discharged yesterday. She said she took her pain medication in the evening and around 2 AM she woke up with nausea and vomiting. She has not been able to put anything in orally for her knee pain and so she was brought to the emergency room. She did say that she was having some chills but no fever. She has had a cholecystectomy many years ago. In the emergency room she was found to have elevated liver function tests. Her AST/ALT was 499/1070 and her alkaline phosphatase was 262. Total bilirubin was 0.6. Her CRP was 8.7, WBC was 8.7, platelet of 218, BUN/creatinine of 9 and 0.68. Her lipase was 88 and her acetaminophen level was less than 0.2. CT scan of her abdomen was done IMPRESSION: 1. PREVIOUS CHOLECYSTECTOMY. 2. 10 MM COMMON BILE DUCT WITH BORDERLINE TO MILD INTRAHEPATIC DUCT DILATATION. CLINICAL CORRELATION REQUIRED. 3. PREVIOUS HYSTERECTOMY. 4. 6 MM SCLEROTIC DENSITY IN THE POSTERIOR S1 LEVEL; BENIGN SCLEROTIC DENSITY VERSUS EARLY OSTEOBLASTIC METASTASIS. CORRELATION REQUIRED. The ED called our general surgeon who recommended patient to be transferred to [facility] for possible ERCP. ED discussed case with [facility] and the [facility] by Dr. Butler, hepatology, and Dr. Whitley , ED. Some of her home meds were started . Her follow up labs showed a reduction on her AST/ALT but her alk phos remained the same. Her lovenox was moved to 5 pm instead of noon in case she was going for the proceedure today. We continued to do PT for her recent RTKA. She is stable and now being transferred to [facility] . Consultation Done:: Dr. Noonan, Dr. Torrez, Dr. Whitley- by ED Procedures Performed: none - Results and Findings Results and Findings: Laboratory Results - last 24 hr 06/26/20 06/26/20 06/26/20 13:10 13:20 13:29 WBC 8.7 RBC 4.38 Hgb 12.3 L Hct 37.8 MCV 86.3 MCH 28.1 MCHC 32.5 RDW 14.2 H Plt Count 218 MPV 10.5 Immature Gran % (Auto) 0.20 Immature Gran # (Auto) 0.02 Neutrophils % 78.6 H Lymphocytes % 11.2 L Monocytes % 8.6 Eosinophils % 1.1 Basophils % 0.3 Nucleated RBC % 0.0 Neutrophils # 6.9 H Lymphocytes # 0.98 L Monocytes # 0.8 Eosinophils # 0.1 Absolute Basophils 0.0 Sodium Plasma Sodium Potassium Chloride Carbon Dioxide Anion Gap BUN Creatinine Est GFR (Non-Af Amer) BUN/Creatinine Ratio Random Glucose Calcium Calcium Adj for Albumin Total Bilirubin AST ALT Alkaline Phosphatase C-Reactive Prot, Quant Total Protein Albumin Lipase 88 Acetaminophen Less than 0.2 L 06/26/20 13:29 WBC RBC Hgb Hct MCV MCH MCHC RDW Plt Count MPV Immature Gran % (Auto) Immature Gran # (Auto) Neutrophils % Lymphocytes % Monocytes % Eosinophils % Basophils % Nucleated RBC % Neutrophils # Lymphocytes # Monocytes # Eosinophils # Absolute Basophils Sodium 141 Plasma Sodium 141 Potassium 3.7 Chloride 104 Carbon Dioxide 26.0 Anion Gap 14.7 H BUN 9 Creatinine 0.68 Est GFR (Non-Af Amer) 92 D BUN/Creatinine Ratio 13.2 Random Glucose 106 Calcium 9.1 Calcium Adj for Albumin 8.9 Total Bilirubin 0.6 AST 499 H ALT 1070 H Alkaline Phosphatase 262 H C-Reactive Prot, Quant 8.7 H Total Protein 7.4 Albumin 3.8 Lipase Acetaminophen - Medications Medications: Active Medications Sodium Chloride (Sodium Chloride 0.9%) 1,000 mls @ 999 mls/hr IV .Q1H1M PRN PRN Reason: HYDRATION Stop: 07/26/20 13:17 Last Infusion: 06/26/20 14:29 Dose: Infused Documented by: Discontinued Medications Diatrizoate Meglum/Diatrizoate Sod (Diatrizoate Meglumine, Sodium 30 Ml Btl) 60 ml PO ONCE ONE Stop: 06/26/20 14:10 Last Admin: 06/26/20 14:22 Dose: 60 ml Documented by: Hydromorphone HCl (Hydromorphone Hcl 1 Mg/Ml Disp.Syrin) 0.5 mg IV ONCE ONE Stop: 06/26/20 16:49 Last Admin: 06/26/20 17:00 Dose: 0.5 mg Documented by: Hydromorphone HCl (Hydromorphone Hcl 1 Mg/Ml Disp.Syrin) 0.5 mg IV ONCE ONE Stop: 06/26/20 18:30 Last Admin: 06/26/20 18:39 Dose: 0.5 mg Documented by: Morphine Sulfate (Morphine Sulfate 4 Mg/Ml Syrg) 4 mg IV ONCE ONE Stop: 06/26/20 13:21 Last Admin: 06/26/20 13:41 Dose: 4 mg Documented by: Morphine Sulfate (Morphine Sulfate 2 Mg/Ml Disp.Syrin) 2 mg IV ONCE ONE Stop: 06/26/20 15:22 Last Admin: 06/26/20 15:29 Dose: 2 mg Documented by: Ondansetron HCl (Ondansetron Hcl/Pf 2 Mg/Ml Vial) 4 mg IV ONCE ONE Stop: 06/26/20 13:18 Last Admin: 06/26/20 13:40 Dose: 4 mg Documented by: Ondansetron HCl (Ondansetron Hcl/Pf 2 Mg/Ml Vial) 4 mg IV ONCE ONE Stop: 06/26/20 15:23 Last Admin: 06/26/20 15:25 Dose: 4 mg Documented by: - Disposition Disposition: Intermediate Care Facility [facility] Condition: Stable Discharge Date: 06/27/20 Discharge Time: 11:22
[2020-06-27] MEDS: ONDANSETRON HCL/PF 2 MG/ML VIAL IV PRN ×2 (01:14→09:52)
[2020-06-27] MEDS: HYDROmorphone HCL 1 MG/ML DISP.SYRIN IV PRN ×4 (03:26→11:46)
[2020-06-27 08:30] LABS: Hematocrit 35.1 % (37.0-47.0); Hemoglobin 11.2 gm/dL (12.5-16.0); Mean Corpuscular Hemoglobin 28.1 pg (27-31); Mean Corpuscular Hgb Conc 31.9 g/dl (32-36); Mean Platelet Volume 10.9 fl (8-12.5); Neutrophil # 5.2 K/mm3 (1.3-6.0); Neutrophil % 69.8 % (42-75.0); Platelet Count 203 K/mm3 (150-450); Red Blood Count 3.99 M/mm3 (4.2-5.4); Red Cell Distribution Width 14.4 % (11.5-14.0); White Blood Count 7.4 K/mm3 (4.0-10.5)
[2020-06-27 08:44] LABS: Albumin * 3.3 gm/dl (3.4-5.0); BUN/Creatinine Ratio 7.8 (9.0-21.6); Bilirubin, Total 0.8 mg/dL (0.0-1.1); Ca. Corrected For Albumin 8.9 mg/dL (8.4-10.2); Calcium * 8.7 mg/dL (7.9-10.9); Carbon Dioxide 28.5 mmol/L (24-32.6); Potassium 3.5 mmol/L (3.4-4.6); Total Protein 6.8 gm/dL (6.2-8.2)
--- NOTE | 2020-06-27 08:59 | PN ---
Subjective - Date and Time Seen Date: 06/27/20 Time: 08:50 Subjective Narrative: She says she has no more N/V. C/O constipation. 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 Objective - Review of Systems Generalized/Overall Review: Denies: Chills, Fever EENTM: Denies: Blurred Vision Respiratory: Denies: Cough, Shortness of Breath, Orthopnea Cardiac: Denies: Chest Pain, Edema, Palpitations Abdominal: Denies: Nausea, Vomiting, Abdominal Pain Genitourinary Symptoms: Denies: Urgency, Frequency Musculoskeletal Complaints: Reports: Joint Pain Neurological: Reports: Anxiety. Denies: Headache Skin: Denies: Lesions, Rash Misc: All systems neg except as marked - Vitals Vitals: Last Vital Signs Temp 37.6 C 06/27/20 06:42 Pulse 110 H 06/27/20 06:42 Resp 16 06/27/20 06:42 BP 142/84 06/27/20 06:42 Pulse Ox 96 06/27/20 06:42 - Abnormal Lab Findings Abnormal Lab Findings: Abnormal Lab Results 06/26/20 06/26/20 06/26/20 Range/Units 13:10 13:29 13:29 RBC (4.2-5.4) M/mm3 Hgb 12.3 L (12.5-16.0) gm/dL Hct (37.0-47.0) % MCHC (32-36) g/dl RDW 14.2 H (11.5-14.0) % Neutrophils % 78.6 H (42-75.0) % Lymphocytes % 11.2 L (20-51) % Monocytes % (0.0-9) % Neutrophils # 6.9 H (1.3-6.0) K/mm3 Lymphocytes # 0.98 L (1.5-3.5) k/mm3 Anion Gap 14.7 H (6.8-13.8) mmol/L BUN/Creatinine Ratio (9.0-21.6) Random Glucose (70-110) mg/dL AST 499 H (0-48) U/L ALT 1070 H (19-67) U/L Alkaline Phosphatase 262 H (50-170) U/L C-Reactive Prot, Quant 8.7 H (0.0-0.9) mg/dL Albumin (3.4-5.0) gm/dl Acetaminophen Less than 0.2 L (10.0-30.0) mcg/mL 06/27/20 06/27/20 Range/Units 08:20 08:20 RBC 3.99 L (4.2-5.4) M/mm3 Hgb 11.2 L (12.5-16.0) gm/dL Hct 35.1 L (37.0-47.0) % MCHC 31.9 L (32-36) g/dl RDW 14.4 H (11.5-14.0) % Neutrophils % (42-75.0) % Lymphocytes % 17.0 L (20-51) % Monocytes % 10.4 H (0.0-9) % Neutrophils # (1.3-6.0) K/mm3 Lymphocytes # 1.26 L (1.5-3.5) k/mm3 Anion Gap (6.8-13.8) mmol/L BUN/Creatinine Ratio 7.8 L (9.0-21.6) Random Glucose 123 H (70-110) mg/dL AST 241 H (0-48) U/L ALT 688 H (19-67) U/L Alkaline Phosphatase 262 H (50-170) U/L C-Reactive Prot, Quant (0.0-0.9) mg/dL Albumin 3.3 L (3.4-5.0) gm/dl Acetaminophen (10.0-30.0) mcg/mL - Exam Constitutional: Present: Alert, Oriented x3, Cooperative ENT Exam: Present: hearing grossly normal Neck: Absent: supple, lymphadenopathy (R), lymphadenopathy (L) Respiratory: Present: normal breath sounds. Absent: No rales, No wheezing Cardiovascular/Chest: Present: regular rate, rhythm, no JVD, no murmur, tachycardia Abdomen: Present: soft, nontender, nondistended, hypoactive Extremity: Present: no calf tenderness, pedal edema Assessment/Plan Plan Narrative: Awaiting call from [facility] for her transfer. Will resume some of her home medications. Will give extra stool laxative for today. AST/ALT improved but ALk Phos is the same. I did tell her about the CTS showing a sclerotic lesion in her S1 level that she will need to address with her PCP when her liver problem is corrected. - Problems/Diagnosis (1) Elevated liver enzymes Problem: Acute (2) Common bile duct dilatation Problem: Acute (3) Status post right knee replacement Problem: Acute (4) Hypertension Problem: Chronic (5) Hyperlipidemia Problem: Chronic (6) Hypothyroidism Problem: Chronic
[2020-06-27] MEDS ORDERED: SERTRALINE HCL 100 MG TABLET PO SCH (09:00)
[2020-06-27] MEDS ORDERED: CHOLECALCIFEROL 1,000 UNIT CAPSULE PO SCH (09:00)
[2020-06-27] MEDS ORDERED: LEVOTHYROXINE SODIUM 150 MCG TABLET PO SCH (09:00)
[2020-06-27] MEDS ORDERED: LOSARTAN POTASSIUM 50 MG TABLET PO SCH (09:00)
[2020-06-27] MEDS ORDERED: SENNOSIDES/DOCUSATE SODIUM 1 TAB TABLET PO ONE (09:34)
[2020-06-27 12:20] VITALS: BP 140/78
[2020-06-27] MEDS ORDERED: ENOXAPARIN SODIUM 40 MG/0.4 ML SYRG SC SCH (17:00)
[2020-06-27] MEDS ORDERED: SENNOSIDES/DOCUSATE SODIUM 1 TAB TABLET PO SCH (21:00)
== END 2020-06-27 12:05 | disposition short-term general hospital (02) ==
LOC: ER 12:51 → MS 12:51
PROVIDERS: ADMIT Internal Medicine; ATTEND Internal Medicine